=== PATIENT | male | born 1990 | race Two or more races ===

== ENCOUNTER 2018-06-02 20:12 | Emergency (ER) | payer MEDICAID ==
[~2018-06-02] VITALS: Ht 167.6 cm; Wt 86.2 kg
[2018-06-02 20:32] VITALS: BP 135/87
== END 2018-06-02 21:41 | disposition left against medical advice (07) ==
LOC: ER 20:12
DX: M79.601 Pain in right arm (principal); M79.89 Other specified soft tissue disorders; Z53.29 Procedure and treatment not carried out because of patient's decision for other reasons; W11.XXXA Fall on and from ladder, initial encounter; Y93.89 Activity, other specified; Y99.8 Other external cause status; Y92.89 Other specified places as the place of occurrence of the external cause

== ENCOUNTER 2021-09-03 21:00 | Emergency (ER) | payer SELFPAY ==
[~2021-09-03] VITALS: Ht 167.6 cm; Wt 90.7 kg
[2021-09-03 21:00] VITALS: BP 142/87
== END 2021-09-03 22:50 | disposition left against medical advice (07) ==
LOC: ER 21:04
DX: R10.9 Unspecified abdominal pain (principal); R42 Dizziness and giddiness; Z53.21 Procedure and treatment not carried out due to patient leaving prior to being seen by health care provider